=== PATIENT | male | born 1970 | race Caucasian/White ===

== ENCOUNTER 2021-10-16 07:46 | Outpatient (CLI) | payer BC, SELFPAY ==
--- NOTE | 2021-10-16 08:00 | CT_ITS ---
Final Report Patient: ARRON MARTINEZ Facility:?[facility] Patient ID:?[id number] Site Patient ID:?[id number]. Site :?[id number] Study:?CT Chest w/o Contrast-10/16/2021 8:13:44 AM Ordering Physician:Nathan Felton Final Report: INDICATION: Lung nodule. TECHNIQUE: CT chest without contrast. COMPARISON: CT abdomen pelvis 10/17/2020. FINDINGS: Lungs and pleura: 7 mm pulmonary nodule in right middle lobe unchanged compared to CT 10/17/2020. 4 mm pulmonary nodule in a superior segment of the right lower lobe. No other pulmonary nodules. Lungs are clear. No pleural effusion, pleural thickening, pneumothorax. Heart and vasculature: Heart size is normal. Thoracic aorta and pulmonary artery are normal in caliber. Lymph nodes/mediastinum: No mediastinal, hilar, or axillary adenopathy. Chest wall: No masses. Upper abdomen: No significant findings. Bones: Unremarkable for age. IMPRESSION: 1. Stable 7 mm pulmonary nodule in the right middle lobe. Recommend follow-up noncontrast CT in 12 months. 2. Additional 4 mm pulmonary nodule in the superior segment of the right lower lobe. Please note that all CT scans at this facility use dose modulation, iterative reconstruction, and/or weight-based dosing when appropriate to reduce radiation dose to as low as reasonably achievable. Dictated by Dave Hernandez MD @ 10/16/2021 8:56:24 AM (Electronic Signature)
== END 2021-10-16 07:47 | disposition home or self-care (01) ==
LOC: CT 07:48
PROVIDERS: PCP Family Medicine; Visit Provider Family Medicine
DX: R91.1 Solitary pulmonary nodule (principal); R91.8 Other nonspecific abnormal finding of lung field
CPT/HCPCS: 71250

== ENCOUNTER 2022-12-20 16:21 | Outpatient (CLI) | payer BC, SELFPAY | END 2022-12-20 16:22 | disposition home or self-care (01) | PROVIDERS: PCP Family Medicine; Visit Provider Family Medicine | DX: Z00.00 Encounter for general adult medical examination without abnormal findings (principal); I10 Essential (primary) hypertension; R53.83 Other fatigue; Z12.5 Encounter for screening for malignant neoplasm of prostate | CPT/HCPCS: 80048; 80061; 84153; 84443 ==

== ENCOUNTER 2024-05-18 14:16 | Outpatient (CLI) | payer BC, SELFPAY | END 2024-05-18 14:17 | disposition home or self-care (01) | LOC: NFLDREF 14:17 | PROVIDERS: PCP Family Medicine; Visit Provider Family Medicine | DX: I10 Essential (primary) hypertension (principal) | CPT/HCPCS: 80048 ==

== ENCOUNTER 2024-07-06 08:13 | Outpatient (CLI) | payer BC, SELFPAY | END 2024-07-06 08:14 | disposition home or self-care (01) | PROVIDERS: PCP Family Medicine; Visit Provider Family Medicine | DX: I10 Essential (primary) hypertension (principal); Z13.220 Encounter for screening for lipoid disorders; Z12.5 Encounter for screening for malignant neoplasm of prostate | CPT/HCPCS: 80053; 80061; G0103 ==

== ENCOUNTER 2024-07-28 08:56 | Outpatient (CLI) | payer BC, SELFPAY | END 2024-07-28 08:57 | disposition home or self-care (01) | PROVIDERS: PCP Family Medicine; Visit Provider Family Medicine | DX: I10 Essential (primary) hypertension (principal) | CPT/HCPCS: 80048 ==